=== PATIENT | female | born 1950 | race Caucasian/White ===

== ENCOUNTER 2020-06-18 18:07 | Emergency (ER) | payer MEDICARE, BC ==
[2020-06-18] MEDS ORDERED: Meclizine 25 MG Tab PO ONE (19:15)
[2020-06-18] MEDS ORDERED: Diltiazem 120 MG Cap.CD PO ONE (19:15)
[2020-06-18] MEDS ORDERED: cloNIDine 0.1 MG Tab PO ONE (19:16)
--- NOTE | 2020-06-18 19:22 | EDM.PDOC ---
ED HPI GENERAL MEDICAL PROBLEM - General Chief Complaint: Cardiovascular Problem Stated Complaint: HEADACHE,HIGH BP, DIZZINESS Time Seen by Provider: 06/18/20 18:55 Source of Information: Reports: Patient, Old Records, RN History Limitations: Reports: No Limitations - History of Present Illness INITIAL COMMENTS - FREE TEXT/NARRATIVE: 69 yo female presents with elevated BP possibly for a couple days. She had a change in her BP med about 2 weeks ago from an uncertain dose of lisinopril to Diltiazem ER 120 mg daily. Over the last 3 days she has noticed a mild VÁSQUEZ and some dizziness. When she checked her BP at home today it was uncharacteristically elevated to about 200 systolic. Her provider is not available on the weekend and nurse direct told her to come to the ER. She has had dizziness like this about 10 times in her life, not necessarily correlated with elevated BP. She had an extensive blood work up the end of May which she shared with me the results on her phone. Kidney fxn was good. Onset: Gradual Onset Date: 06/16/20 Duration: Day(s): (3), Getting Worse Location: Reports: Head Quality: Reports: Ache Severity: Mild Improves with: Reports: None Worsens with: Reports: Other (? 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) (none) - Related Data Allergies Allergy/AdvReac Type Severity Reaction Status Date / Time Penicillins Allergy Cannot Verified 06/18/20 18:32 Remember contac day-night cold-flu Allergy Cannot Uncoded 06/18/20 18:32 Remember Home Meds: Home Meds Calcium Carbonate/Vitamin D3 [Calcium-Vitamin D] 3 tab PO DAILY 02/08/13 [History] Fenofibrate,Micronized [Lofibra] 134 mg PO DAILY 02/08/13 [History] Fish Oil/[place]-3 Fatty Acids [Fish Oil 1,000 MG] 3,000 mg PO DAILY 02/08/13 [History] Fluocinonide [Lidex 0.05% Crm] 1 applic TOP DAILY PRN 02/08/13 [History] Levothyroxine [Synthroid] 100 mcg PO DAILY 02/08/13 [History] Multivitamin with Folic Acid [Multiple Vitamin Tablet] 1 tab PO DAILY 02/08/13 [History] Vitamin E 1 tab PO DAILY 02/08/13 [History] Aspirin 1 tab PO DAILY 06/18/20 [History] Ibandronate Sodium [Boniva] 1 tab PO ASDIRECTED 06/18/20 [History] Rosuvastatin [Crestor] 1 tab PO DAILY 06/18/20 [History] dilTIAZem HCL [Dilt-XR] 1 tab PO DAILY 06/18/20 [History] Past Medical History Endocrine/Metabolic History: Reports: Hyperthyroidism - Past Surgical History Musculoskeletal Surgical History: Reports: Arthroscopic Knee Social & Family History - Tobacco Use Tobacco Use Status *Q: Never Tobacco User ED ROS GENERAL - Review of Systems Review Of Systems: See Below Constitutional: Reports: No Symptoms HEENT: Reports: No Symptoms Respiratory: Reports: No Symptoms Cardiovascular: Reports: No Symptoms Endocrine: Reports: No Symptoms GI/Abdominal: Reports: No Symptoms : Reports: No Symptoms Musculoskeletal: Reports: No Symptoms Skin: Reports: No Symptoms Neurological: Reports: Dizziness (mild, intermittent vertigo), Headache (mild) Psychiatric: Reports: No Symptoms ED EXAM, GENERAL - Physical Exam Exam: See Below Exam Limited By: No Limitations General Appearance: Alert, WD/WN, No Apparent Distress Eye Exam: Bilateral Eye: Normal Inspection Ears: Normal External Exam, Normal Canal, Hearing Grossly Normal, Normal TMs Ear Exam: Bilateral Ear: Auricle Normal, Canal Normal, TM normal Nose: Normal Inspection, No Blood Throat/Mouth: Normal Inspection, Normal Lips, Normal Oropharynx, Normal Voice, No Airway Compromise Head: Atraumatic, Normocephalic Neck: Normal Inspection Respiratory/Chest: No Respiratory Distress, Lungs Clear, Normal Breath Sounds, No Accessory Muscle Use Cardiovascular: Regular Rate, Rhythm, No Edema Extremities: Normal Inspection, No Pedal Edema. No: Pedal Edema Neurological: Alert, Oriented, CN II-XII Intact, Normal Cognition, No Motor/Sensory Deficits Psychiatric: Normal Affect, Normal Mood Skin Exam: Warm, Dry, Intact, Normal Color, No Rash Course - Vital Signs Last Recorded V/S: Last Vital Signs Temp 36.9 C 06/18/20 18:47 Pulse 75 06/18/20 20:24 Resp 16 06/18/20 18:47 BP 148/84 H 06/18/20 20:24 Pulse Ox 96 06/18/20 20:24 - Orders/Labs/Meds Meds: Medications Discontinued Medications Generic Name Dose Route Start Last Admin Trade Name Sherron PRN Reason Stop Dose Admin Clonidine HCl 0.1 mg 06/18/20 19:16 06/18/20 19:28 Clonidine 0.1 Mg Tab PO 06/18/20 19:17 0.1 mg ONETIME ONE Administration Diltiazem HCl 120 mg 06/18/20 19:15 06/18/20 19:29 Diltiazem 120 Mg Cap.Cd PO 06/18/20 19:16 120 mg ONETIME ONE Administration Meclizine HCl 25 mg 06/18/20 19:15 06/18/20 19:30 Meclizine 25 Mg Tab PO 06/18/20 19:16 25 mg ONETIME ONE Administration Departure - Departure Time of Disposition: 20:27 Disposition: Home, Self-Care 01 Condition: Good Clinical Impression: HTN, goal below 130/80 Referrals: PCP,None [Primary Care Provider] - Forms: ED Department Discharge Additional Instructions: Increase your diltiazem to one dose every 12 hrs. Use the meclizine as needed for vertigo symptoms. Discuss your situation with your provider tomorrow and keep her updated on your BP's. Sepsis Event Note (ED) - Evaluation Sepsis Screening Result: No Definite Risk - Focused Exam Vital Signs: Vital Signs Temp Pulse Pulse Resp BP BP Pulse Ox 06/18/20 20:24 75 148/84 H 96 06/18/20 20:02 75 159/100 H 95 06/18/20 19:29 82 170/97 H 06/18/20 19:28 170/97 H 06/18/20 19:22 74 170/97 H 99 06/18/20 18:47 36.9 C 86 16 200/106 H 97 06/18/20 18:46 75 198/106 H 97 06/18/20 18:26 36.9 C 86 16 200/106 H 97
== END 2020-06-18 20:44 | disposition home or self-care (01) ==
LOC: JP.ED 18:07
DX: I10 Essential (primary) hypertension (principal); E05.90 Thyrotoxicosis, unspecified without thyrotoxic crisis or storm; Z88.0 Allergy status to penicillin; Z88.8 Allergy status to other drugs, medicaments and biological substances; Z79.82 Long term (current) use of aspirin; Z79.899 Other long term (current) drug therapy
CPT/HCPCS: 99283; A9270

== ENCOUNTER → 2023-09-19 | Day surgery (SDC) | payer MEDICARE, BC ==
[~2023-09-19] MED LIST: Propofol 200 MG/20 ML SDV ONE; fentaNYL 50 MCG/ML SDV ONE
[2023-09-19] MEDS: Sodium Chloride 0.9% 1,000 ML IV SCH (16:30)
== END ==
LOC: JP.SDS 07:53
PROVIDERS: ATTEND Surgery
DX: Z12.11 Encounter for screening for malignant neoplasm of colon (principal); I10 Essential (primary) hypertension; Z80.0 Family history of malignant neoplasm of digestive organs
CPT/HCPCS: 00811; G0104; J2704; J3010; J7030